=== PATIENT | female | born 1960 | race Caucasian/White ===

== ENCOUNTER 2017-06-22 12:57 | Emergency (ER) | payer OTHER ==
[2017-06-22 13:07] VITALS: RESP 18
[2017-06-22] MEDS ORDERED: Sodium Chloride 0.9% 1,000 ML IV ONE (13:34)
[2017-06-22] MEDS ORDERED: Sodium Chloride 0.9% 1,000 ML ONE (13:44)
[2017-06-22 13:53] LABS: RBC URINE 11 /hpf (0-3); URINE BACTERIA RARE (<OCC); URINE BILIRUBIN NEGATIVE (NEGATIVE); URINE BLOOD 2+ (NEGATIVE); URINE COLOR Yellow (YELLOW); URINE GLUCOSE (UA) NORMAL (Normal); URINE KETONE NEGATIVE (NEGATIVE); URINE LEUKOCYTE ESTERASE NEG Leu/uL (Negative); URINE PROTEIN NEGATIVE (NEGATIVE); URINE UROBILINOGEN NORMAL mg/dL (0.2-1.0); WBC URINE 6 /hpf (0-5)
[2017-06-22 14:07] LABS: BASO % 0.5 % (0.0-2.0); EOS % 0.8 % (0.0-4.0); HEMATOCRIT 32.8 % (34.0-47.0); LYMPH # 1.1 K/uL (1.0-4.3); LYMPH % 17.7 % (20.0-40.0); MEAN CELL VOLUME 92.9 fL (81.0-99.0); MEAN CORPUSCULAR HEMOGLOBIN 31.6 pg (27.0-31.0); MEAN PLATELET VOLUME 8.5 fL (7.2-11.7); MONO # 0.3 K/uL (0.0-0.8); MONO % 4.7 % (0.0-10.0); NRBC % 0.1 % (0.0-2.0); WHITE BLOOD COUNT 6.1 K/uL (4.8-10.8)
--- NOTE | 2017-06-22 14:10 | C.PDOC ---
History Of Present Illness 56 y/o female presents to ED with complaints of abdominal pain with associated nausea and vomiting last episode this morning. Patient was seen at another ED on 06/09/17 and diagnosed with Urine infection, prescribed Keflex which she was compliant with and finished dose. At ED patient reports urinary symptoms have return with foul odor in urine and lower back pain. Patient denies fever, chills , dizziness or any other complaints at this time. Time Seen by Provider: 06/22/17 13:13 Chief Complaint (Nursing): Abdominal Pain History Per: Patient History/Exam Limitations: no limitations Onset/Duration Of Symptoms: Hrs Current Symptoms Are (Timing): Still Present Past Medical History Reviewed: Historical Data, Nursing Documentation, Vital Signs Vital Signs: Last Vital Signs Temp 97.9 F 06/22/17 16:13 Pulse 63 06/22/17 16:13 Resp 18 06/22/17 16:13 BP 111/71 06/22/17 16:13 Pulse Ox 95 06/22/17 16:24 Surgical History: No Surg Hx Family History: States: No Known Family Hx - Social History Hx Alcohol Use: Yes Hx Substance Use: No - Immunization History Hx Tetanus Toxoid Vaccination: No Hx Influenza Vaccination: No Hx Pneumococcal Vaccination: No Review Of Systems Constitutional: Negative for: Fever, Chills Cardiovascular: Negative for: Chest Pain Gastrointestinal: Positive for: Nausea, Vomiting, Abdominal Pain. Negative for : Diarrhea, Constipation Musculoskeletal: Positive for: Back Pain Skin: Negative for: Rash Physical Exam - Physical Exam Appears: Non-toxic, No Acute Distress Skin: Normal Color, Warm, No Rash Head: Atraumatic, Normacephalic Eye(s): bilateral: Normal Inspection, PERRL, EOMI Oral Mucosa: Moist Neck: Supple Chest: Symmetrical, No Tenderness Cardiovascular: Rhythm Regular, No Murmur Respiratory: No Rales, No Rhonchi, No Wheezing Gastrointestinal/Abdominal: Soft, Tenderness (Suprapubic), No Distention, No Guarding, No Rebound Back: CVA Tenderness (Mild) Extremity: No Pedal Edema, Capillary Refill (<2 seconds) Neurological/Psych: Oriented x3, Normal Speech, Normal Cognition ED Course And Treatment - Laboratory Results Result Diagrams: 06/22/17 14:04 06/22/17 14:04 O2 Sat by Pulse Oximetry: 95 (RA) Pulse Ox Interpretation: Normal Medical Decision Making Medical Decision Making: per c & s done at [facility], where pt was seen on 06/09, pt has more than 100, 000 cfu of e coli, not esbl, sensitive to aztreonam, cefipime, rocephin, macrobid and cipro. Disposition - Disposition Referrals: [facility] [Outside] [facility] [Outside] Disposition: HOME/ ROUTINE Disposition Time: 16:14 Condition: IMPROVED Additional Instructions: Srvase josse antibiticos segn lo prescrito. Narda lquidos aumentados. Seguimiento en la clnica mdica en unos starr. Vuelva a la syeda de emergencias si no puede mantener los antibiticos y continuar vomitando. 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 - Scribe Statement The provider has reviewed the documentation as recorded by the Marilyn Weaver All medical record entries made by the Teresaibe were at my direction and personally dictated by me. I have reviewed the chart and agree that the record accurately reflects my personal performance of the history, physical exam, medical decision making, and the department course for this patient. I have also personally directed, reviewed, and agree with the discharge instructions and disposition.
[2017-06-22 14:19] LABS: ALB/GLOB RATIO 1.1 (1.0-2.1); ALKALINE PHOSPHATASE 82 U/L (38-126); ALT/SGPT 28 U/L (9-52); AST/SGOT 32 U/L (14-36); BILIRUBIN,TOTAL 0.6 mg/dL (0.2-1.3); BLOOD UREA NITROGEN 14 mg/dL (7-17); CALCIUM 8.9 mg/dl (8.6-10.4); CARBON DIOXIDE 25 mmol/L (22-30); CHLORIDE 107 mmol/L (98-107); GFR AFRICAN-AMERICAN > 60; GLUCOSE,RANDOM 103 mg/dL (65-105); POTASSIUM 4.7 mmol/L (3.6-5.2); SODIUM 144 mmol/L (132-148); TOTAL PROTEIN 7.1 g/dL (6.3-8.3)
[2017-06-22] MEDS ORDERED: cefTRIAXone IV 1 gm in Dextros 50 ML IVPB ONE (14:22)
[2017-06-22 16:14] VITALS: BP 111/71; PULSE 63; TEMP 97.9
[2017-06-22 16:17] VITALS: O2SAT 95
== END 2017-06-22 16:40 | disposition home or self-care (01) ==
LOC: C.ER 12:57
DX: N39.0 Urinary tract infection, site not specified (principal)
CPT/HCPCS: 80053; 81001; 85025; 87086; 87181; 96361; 96365; 96375; 99284; J0696; J2765; J7040

== ENCOUNTER 2018-02-04 13:14 | Emergency (ER) | payer SELFPAY ==
[2018-02-04 13:14] VITALS: BMI 28.6
[2018-02-04 13:34] VITALS: BP 128/72; PULSE 82; RESP 18; TEMP 98; O2SAT 99
--- NOTE | 2018-02-04 13:42 | C.PDOC ---
History Of Present Illness 57 yo female come in for evaluation of Right eye pain and mild swelling over lower eyelid noted for past 2 days. Pt admits, sx started after tried to use eye lubricant gel. Otherwise, pt denies high fever, chills, denies known trauma or injury, headache, dizziness, vertigo, blurry vision, double vision, floaters , FB sensation, denies pain on Right eye movement, denies contact use, denies any other active complaints. Ambulate to Ed for evaluation, not in nay apparent distress. Time Seen by Provider: 02/04/18 13:35 Chief Complaint (Nursing): Eye Problem History Per: Patient Onset/Duration Of Symptoms: Gradual Past Medical History Reviewed: Historical Data, Nursing Documentation, Vital Signs Vital Signs: Last Vital Signs Temp 98.0 F 02/04/18 13:33 Pulse 82 02/04/18 13:33 Resp 18 02/04/18 13:33 BP 128/72 02/04/18 13:33 Pulse Ox 99 02/04/18 13:51 - Medical History PMH: Cardia Arrhythmia (paramjit) Surgical History: Cholecystectomy Family History: States: No Known Family Hx - Social History Hx Alcohol Use: No Hx Substance Use: No - Immunization History Hx Tetanus Toxoid Vaccination: No Hx Influenza Vaccination: No Hx Pneumococcal Vaccination: No Review Of Systems Except As Marked, All Systems Reviewed And Found Negative. Constitutional: Negative for: Fever, Chills Eyes: Positive for: Pain, Eyelid Inflammation. Negative for: Vision Change, Conjunctivae Inflammation ENT: Negative for: Ear Pain, Ear Discharge, Nose Pain, Nose Discharge, Nose Congestion, Mouth Swelling, Throat Pain, Throat Swelling Cardiovascular: Negative for: Chest Pain Respiratory: Negative for: Cough, Shortness of Breath Skin: Negative for: Rash Neurological: Negative for: Weakness, Numbness, Altered Mental Status, Headache , Dizziness Physical Exam - Physical Exam Appears: Well, Non-toxic, No Acute Distress Skin: Normal Color, Warm, No Rash Head: Atraumatic, Normacephalic Eye(s): bilateral: PERRL, EOMI (no pain or limitation on extraocular movement B/ L), right: Other (inner lower eyelid small tender swelling likely chalazion with mild injection. Trace inferior orbital edema noted. No erythema, no periorbital swelling or erythema, no eye discharges.) Ear(s): Bilateral: Normal Nose: No Flaring, No Discharge Oral Mucosa: Moist Tongue: Normal Appearing Lips: Normal Appearing Throat: No Erythema, No Drooling Neck: Trachea Midline, Supple Extremity: Normal ROM Neurological/Psych: Oriented x3, Normal Speech, Normal Motor, Normal Sensation, Normal Reflexes ED Course And Treatment O2 Sat by Pulse Oximetry: 99 Pulse Ox Interpretation: Normal Progress Note: On re-evaluation, pt is afebrile, hemodynamicaly stable. non- toxic. head: AT/NC. Right eye: exam c/w lower lid chalazion with mild infraorbilat edema, no erythema, no evidence fo periorbital cellulitis. NO pain or limitation on extraocular movement. VA: Right 20/30, Left 20/40, B/L 20/30 w /o correction. ENT: no acute findings. neck: Supple, (-) JVD. Neuorlogicaly intact. Pt advised on course of ds. ref. to f/u with Opht in 1-2 days for re- eval. return to ED if any worsening or new changes. Disposition Counseled Patient/Family Regarding: Diagnosis, Need For Followup, Rx Given - Disposition Referrals: Osvaldo Cox [Staff Provider] - Disposition: HOME/ ROUTINE Disposition Time: 13:45 Condition: STABLE Additional Instructions: Stop using Lubricant eye drops take medication as prescribed Warm eye compresses ( tea bad can be used to eye area) daily Follow up with ophthalmology in 1-2 days for re-evaluation. return to ED if any worsening or new changes. Prescriptions: Amoxicillin/Clavulanate [Augmentin 875 MG-125 MG] 1 tab PO BID #14 tab Neomycin/Polymyxin/Dexamethaso [Dexamethasone/Neomycin/Polymyxin 5 Ml] 1 drop RIGHTEYE Q6 #1 bottle Instructions: Chalazion Forms: [employer] (Divehi) Print Language: SOUTH KOREAN - Clinical Impression Clinical Impression: Chalazion
== END 2018-02-04 14:15 | disposition home or self-care (01) ==
LOC: C.ER 13:14
DX: H00.12 Chalazion right lower eyelid (principal)

== ENCOUNTER 2018-11-01 08:08 | Emergency (ER) | payer OTHER ==
[2018-11-01 08:08] VITALS: BMI 28.6
[2018-11-01 08:24] VITALS: TEMP 97.9; O2SAT 97
--- NOTE | 2018-11-01 09:30 | C.PDOC ---
History Of Present Illness 57 y/o female c/o bilateral eyes 'feel hot' x 3 weeks with a bump on lower left eyelid. pt had similar eyelid problem on right in 02/06, treated for chalazion. pt denies blurred vision, discharge from eye or fever. Time Seen by Provider: 11/01/18 08:45 Chief Complaint (Nursing): Eye Problem Onset/Duration Of Symptoms: Other (3 weeks) Quality: Other (feeling hot) Associated Symptoms: denies: Decreased Vision, Discharge From Eye, Other (fever) Past Medical History Reviewed: Historical Data, Nursing Documentation, Vital Signs Vital Signs: Last Vital Signs Temp 97.9 F 11/01/18 08:15 Pulse 52 L 11/01/18 08:15 Resp 20 11/01/18 08:15 BP 154/88 H 11/01/18 08:15 Pulse Ox 97 11/01/18 08:15 - Medical History PMH: Cardia Arrhythmia (paramjit) Surgical History: Appendectomy, Cholecystectomy Family History: States: No Known Family Hx - Social History Hx Alcohol Use: No Hx Substance Use: No - Immunization History Hx Tetanus Toxoid Vaccination: No Hx Influenza Vaccination: No Hx Pneumococcal Vaccination: No Review Of Systems Constitutional: Negative for: Fever, Chills Eyes: Positive for: Pain (burning). Negative for: Vision Change, Conjunctivae Inflammation, Other (discharge) ENT: Negative for: Ear Pain, Throat Pain Cardiovascular: Negative for: Chest Pain Gastrointestinal: Negative for: Abdominal Pain Skin: Negative for: Rash Neurological: Negative for: Weakness, Numbness Physical Exam - Physical Exam Appears: Non-toxic, No Acute Distress Skin: Normal Color, Dry Head: Atraumatic, Normacephalic Eye(s): bilateral: PERRL, EOMI, right: Normal Inspection, left: Other (small pustule noted to mid lower left eyelid. No fluorescine uptake. ) Oral Mucosa: Moist Neck: Normal, Supple Chest: Symmetrical, No Tenderness Extremity: Normal ROM Neurological/Psych: Oriented x3, Normal Speech, Normal Cognition ED Course And Treatment O2 Sat by Pulse Oximetry: 97 (RA) Pulse Ox Interpretation: Normal Medical Decision Making Medical Decision Making: pt with small stye on left lower eyelid, no adjacent swelling, no fluorescein uptake. will d/c with warm compresses, polytrim drop and eye f/u Disposition Counseled Patient/Family Regarding: Studies Performed, Diagnosis, Need For Followup, Rx Given - Disposition Referrals: Azael Knott MD [Staff Provider] - Disposition: HOME/ ROUTINE Disposition Time: 09:52 Condition: GOOD Additional Instructions: Aplique compresas tibias en el leslee brittany varias veces al da. Use harpreet gota de medicamento en el leslee brittany 2 veces al da. Tylenol para el dolor si es necesario. Seguimiento con clnica mdica y oculista, Dr. Knott. Regreso por cualquier sntoma peor. Please apply warm compresses to left eye several times a day. Use one drop of medication in left eye 2 times a day. Tylenol for pain if needed. Follow up with medical clinic and eye doctor, Dr Knott. Return for any worse symptoms. 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 - Scribe Statement The provider has reviewed the documentation as recorded by the Scribe (Fredis Jane) All medical record entries made by the Scribe were at my direction and personally dictated by me. I have reviewed the chart and agree that the record accurately reflects my personal performance of the history, physical exam, medical decision making, and the department course for this patient. I have also personally directed, reviewed, and agree with the discharge instructions and disposition.
[2018-11-01 10:42] VITALS: BP 145/90; PULSE 59; RESP 18
== END 2018-11-01 10:10 | disposition home or self-care (01) ==
LOC: C.ER 08:08
DX: H00.015 Hordeolum externum left lower eyelid (principal)